=== PATIENT | male | born 1950 | race Caucasian/White ===

== ENCOUNTER 2020-12-03 09:59 | Emergency (ER) | payer OTHER ==
[~2020-12-03] VITALS: Ht 167.6 cm; Wt 83.0 kg
[2020-12-03] MEDS ORDERED: CIPRO500 MG PO (11:23)
[2020-12-03] MEDS ORDERED: KETO10TA2 PO (11:23)
[2020-12-03] MEDS ORDERED: TYLENOL325 MG (11:27)
== END 2020-12-03 11:32 | disposition home or self-care (01) ==
LOC: ER 09:59
DX: L72.0 Epidermal cyst (principal); L02.212 Cutaneous abscess of back [any part, except buttock and flank]; B96.89 Other specified bacterial agents as the cause of diseases classified elsewhere